=== PATIENT | male | born 1980 | race Caucasian/White ===

== ENCOUNTER 2017-04-05 07:16 | Emergency (ER) | payer OTHER, BC ==
[2017-04-05 07:22] VITALS: BP 125/90; PULSE 63; TEMP 98; BMI 31.8
--- NOTE | 2017-04-05 07:32 | PDOC ---
History of Present Illness - General Chief Complaint: Pain, Acute Stated Complaint: RIGHT FOOT PAIN Time Seen by Provider: 04/05/17 07:23 History Source: Patient Exam Limitations: No Limitations - History of Present Illness Initial Comments: 04/05/17 07:33 36 yo with hypothyroidism and asthma, on synthroid and inhalers, had table fall onto dorsum of left foot about a half hour ago. Hematoma about 3cm x 5 cm to dorsum of left foot obvious. No bony tenderness and no ligamentous laxity, foot NV intact, ankle not involved. Timing/Duration: 1/2 hour Severity: mild Modifying Factors: improves with: cold therapy Associated Symptoms: denies: denies symptoms Past History - Past Medical History Allergies/Adverse Reactions: Allergies Allergy/AdvReac Type Severity Reaction Status Date / Time No Known Allergies Allergy Verified 04/05/17 07:17 Home Medications: Ambulatory Orders Albuterol Sulfate Inhaler - [Ventolin Hfa Inhaler -] 1 puff IH ASDIR 04/05/17 Ibuprofen 800 mg PO TID #30 tablet 04/05/17 Levothyroxine [Synthroid -] 112 mcg PO DAILY 04/05/17 Oxycodone HCl/Acetaminophen [Percocet 5-325 mg Tablet] 1 - 2 tab PO Q6H #20 tab MDD 6 04/05/17 Asthma: Yes Thyroid Disease: Yes - Psycho/Social/Smoking Cessation Hx Anxiety: No Suicidal Ideation: No Smoking History: Never smoked Hx Alcohol Use: Yes Drug/Substance Use Hx: No Substance Use Type: Alcohol Review of Systems - Review of Systems Able to Perform ROS?: Yes Is the patient limited Citizen [place] proficient: No Constitutional: No: Symptoms Reported HEENTM: No: Symptoms Reported Respiratory: No: Symptoms reported Cardiac (ROS): No: Symptoms Reported ABD/GI: No: Symptoms Reported : No: Symptoms Reported Musculoskeletal: Yes: See HPI Integumentary: No: Symptoms Reported Neurological: No: Symptoms reported Psychiatric: No: Anxiety, Depression Endocrine: No: Symptoms Reported Hematologic/Lymphatic: No: Symptoms Reported All Other Systems: Reviewed and Negative *Physical Exam - Vital Signs Last Vital Signs Temp Pulse Resp BP Pulse Ox 98 F 63 18 125/90 100 04/05/17 07:17 04/05/17 07:17 04/05/17 07:17 04/05/17 07:17 04/05/17 07:17 - Physical Exam General Appearance: Yes: Other (alert and oriented, no distress) Musculoskeletal: positive: Other (Small hematoma to dorsum of left foot, no bony tenderness, no crepetance, no deformity, NV Intact distally.) *DC/Admit/Observation/Transfer Diagnosis at time of Disposition: Hematoma of lower extremity Qualifiers: Encounter type: initial encounter Laterality: right Qualified Code(s): S80.11XA - Contusion of right lower leg, initial encounter Contusion of right foot Qualifiers: Encounter type: initial encounter Qualified Code(s): S90.31XA - Contusion of right foot, initial encounter - Discharge Dispostion Condition at time of disposition: Stable - Prescriptions Prescriptions: Ibuprofen 800 mg PO TID #30 tablet Oxycodone HCl/Acetaminophen [Percocet 5-325 mg Tablet] 1 - 2 tab PO Q6H #20 tab MDD 6 - Referrals Referrals: Ricardo Rothman MD [Staff Physician] - - Patient Instructions Printed Discharge Instructions: Contusion, DI for Contusion Additional Instructions: Carlos - Sorry this happened to you today. Your x-rays were negative for fracture. Use the crutches for comfort. Percocet is for really bad pain, Motrin 800 is for bad pain. Ice it and keep it elevated. Wear the kishore to keep the swelling to a minimal. Follow up with Orthopedics next week. [place]- Dr. Filemon Chambers
[2017-04-05] MEDS ORDERED: IBUPROFEN 400 MG TABLET (FP) PO ONE ×2 (08:03→08:12)
== END 2017-04-05 08:22 | disposition home or self-care (01) ==
LOC: FER 07:16
DX: S80.11XA Contusion of right lower leg, initial encounter (principal); S90.31XA Contusion of right foot, initial encounter; W20.8XXA Other cause of strike by thrown, projected or falling object, initial encounter; Y93.9 Activity, unspecified; Y92.9 Unspecified place or not applicable; J45.909 Unspecified asthma, uncomplicated; E03.9 Hypothyroidism, unspecified
CPT/HCPCS: 73630-TC-RT; 99283-25

== ENCOUNTER 2019-09-28 20:41 | Emergency (ER) | payer BC ==
[2019-09-28 20:52] VITALS: BP 106/73; PULSE 64; TEMP 98; BMI 31.1
--- NOTE | 2019-09-28 21:18 | PDOC ---
Documentation entered by Yomaira Mendez SCRIBE, acting as scribe for Maxime Solitario MD. Maxime Solitario MD: This documentation has been prepared by the Andrea bush Aiswarya, SCRIBE, under my direction and personally reviewed by me in its entirety. I confirm that the documentation accurately reflects all work, treatment, procedures, and medical decision making performed by me. History of Present Illness - General Chief Complaint: Pain, Acute Stated Complaint: PAIN RIGHT SIDE, POSSIBLE CRACKED RIB History Source: Patient Exam Limitations: No Limitations - History of Present Illness Initial Comments: 09/28/19 21:12 The patient is a 39 year old male, with a significant PMH of asthma and hypothyroidism, who presents to the emergency department with right sided rib pain that occurred 2 days ago. 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 Patient noticed mild pain to the 10th and 11th rib at first but pain progressively worsened today. He notes pain is alleviated when sitting up and exacerbated when lying down. The patient denies, shortness of breath, headache and dizziness. Denies fever, chills, nausea, vomit, diarrhea and constipation. Denies numbness, tingling, falls, or head trauma. Allergies: NKDA Past surgical history: None reported Social history: None reported PCP: None reported Past History - Past Medical History Allergies/Adverse Reactions: Allergies Allergy/AdvReac Type Severity Reaction Status Date / Time No Known Allergies Allergy Verified 09/28/19 20:43 Home Medications: Ambulatory Orders Albuterol Sulfate Inhaler - [Ventolin Hfa Inhaler -] 1 puff IH ASDIR 04/05/17 Levothyroxine [Synthroid -] 112 mcg PO DAILY 04/05/17 Asthma: Yes Thyroid Disease: Yes - Psycho Social/Smoking Cessation Hx Smoking History: Never smoked Hx Alcohol Use: Yes Drug/Substance Use Hx: No Substance Use Type: Alcohol Review of Systems - Review of Systems Able to Perform ROS?: Yes Comments:: 09/28/19 21:13 GENERAL/CONSTITUTIONAL: No fever or chills. No weakness. HEAD, EYES, EARS, NOSE AND THROAT: No change in vision. No ear pain or discharge. No sore throat. CARDIOVASCULAR: No chest pain or shortness of breath. RESPIRATORY: No cough, wheezing, or hemoptysis. GASTROINTESTINAL: No nausea, vomiting, diarrhea or constipation. GENITOURINARY: No dysuria, frequency, or change in urination. MUSCULOSKELETAL: +right sided rib pain. No neck or back pain. SKIN: No rash NEUROLOGIC: No headache, vertigo, loss of consciousness, or change in strength/ sensation. ENDOCRINE: No increased thirst. No abnormal weight change. HEMATOLOGIC/LYMPHATIC: No anemia, easy bleeding, or history of blood clots. ALLERGIC/IMMUNOLOGIC: No hives or skin allergy. *Physical Exam - Vital Signs Last Vital Signs Temp Pulse Resp BP Pulse Ox 98 F 64 16 106/73 100 09/28/19 20:44 09/28/19 20:44 09/28/19 20:44 09/28/19 20:44 09/28/19 20:44 - Physical Exam Comments: 09/28/19 21:13 GENERAL: Awake, alert, and fully oriented, in no acute distress HEAD: No signs of trauma LUNGS: Breath sounds equal, clear to auscultation bilaterally. No wheezes, and no crackles HEART: Regular rate and rhythm, normal S1 and S2, no murmurs, rubs or gallops ABDOMEN: Soft, nontender, normoactive bowel sounds. No guarding, no rebound. No masses EXTREMITIES: +Tenderness on palpation to the 10th and 11th rib. No edema. No clubbing or cyanosis. No cords and erythema NEUROLOGICAL: Cranial nerves II through XII grossly intact. Normal speech, normal gait SKIN: Warm, Dry, normal turgor, no rashes or lesions noted. ED Treatment Course - RADIOLOGY Radiology Studies Ordered: Category Date Time Status RIBS RIGHT SIDE [RAD] Stat Radiology 09/28/19 20:49 Taken Medical Decision Making - Medical Decision Making 09/29/19 07:22 plain films -, as read by me, referred to radiology for definitive review rib contusion analgesia Discharge - Discharge Information Problems reviewed: Yes Clinical Impression/Diagnosis: Rib contusion Qualifiers: Encounter type: initial encounter Laterality: right Qualified Code(s): S20.211A - Contusion of right front wall of thorax, initial encounter Condition: Stable Disposition: HOME - Follow up/Referral - Patient Discharge Instructions Patient Printed Discharge Instructions: DI for Rib Contusion - Post Discharge Activity
== END 2019-09-28 21:25 | disposition home or self-care (01) ==
LOC: FER 20:41
DX: S20.211A Contusion of right front wall of thorax, initial encounter (principal); X58.XXXA Exposure to other specified factors, initial encounter; Y93.89 Activity, other specified; Y92.89 Other specified places as the place of occurrence of the external cause; J45.909 Unspecified asthma, uncomplicated; E07.9 Disorder of thyroid, unspecified
CPT/HCPCS: 71101-TC-RT-FY; 99281-25

== ENCOUNTER 2019-09-29 19:30 | Emergency (ER) | payer BC ==
[2019-09-29 19:57] VITALS: BP 154/97; PULSE 84; BMI 31.0
[2019-09-29] MEDS ORDERED: KETOROLAC TROMETHAMINE 60 MG/2 ML VIAL IM ONE (22:43)
[2019-09-29] MEDS ORDERED: KETOROLAC TROMETHAMINE 60 MG/2 ML VIAL ONE (22:44)
--- NOTE | 2019-09-30 04:52 | PDOC ---
Documentation entered by Yomaira Mendez SCRIBE, acting as scribe for Rubi Farrar MD. Rubi Farrar MD: This documentation has been prepared by the Andrea bush Aiswarya, SCRIBE, under my direction and personally reviewed by me in its entirety. I confirm that the documentation accurately reflects all work, treatment, procedures, and medical decision making performed by me. History of Present Illness - General Chief Complaint: Pain, Acute Stated Complaint: PAIN RIGHT SIDE OF CHEST POST INJURY Time Seen by Provider: 09/29/19 19:31 History Source: Patient Exam Limitations: No Limitations - History of Present Illness Initial Comments: 09/29/19 21:57 The patient is a 39 year old male, with a significant PMH of asthma and hypothyroidism, who presents to the emergency department with worsened right sided rib pain that began 3 days ago. The patient states he came in yesterday secondary to pain to the right sided ribs. He reports leaning his shoulder into another person's chest while playing basketball. Patient reports pain progressively worsened since yesterday and radiates to the RUQ and right shoulder, mild relief with ibuprofen taken at 11 am. He notes pain is exacerbated with deep inspiration and movement. The patient denies numbness, tingling, falls, or head trauma. Denies chest pain, shortness of breath, headache and dizziness. Denies fever, chills, nausea, vomit, diarrhea and constipation. Allergies: NKDA Past surgical history: None reported Social history: None reported PCP: None reported Past History - Past Medical History Allergies/Adverse Reactions: Allergies Allergy/AdvReac Type Severity Reaction Status Date / Time No Known Allergies Allergy Verified 09/29/19 19:31 Home Medications: Ambulatory Orders Albuterol Sulfate Inhaler - [Ventolin Hfa Inhaler -] 1 puff IH ASDIR 04/05/17 Levothyroxine [Synthroid -] 112 mcg PO DAILY 04/05/17 Diclofenac Sodium 75 mg PO BID PRN #14 tablet. 09/29/19 Oxycodone HCl/Acetaminophen [Percocet 5-325 mg Tablet] 1 tab PO Q6H PRN #12 tablet MDD 4 tabs 09/29/19 Asthma: Yes COPD: No Thyroid Disease: Yes - Psycho Social/Smoking Cessation Hx Smoking History: Never smoked Have you smoked in the past 12 months: No Hx Alcohol Use: Yes Drug/Substance Use Hx: No Substance Use Type: Alcohol Review of Systems - Review of Systems Able to Perform ROS?: Yes Comments:: 09/29/19 21:58 GENERAL/CONSTITUTIONAL: No fever or chills. No weakness. HEAD, EYES, EARS, NOSE AND THROAT: No change in vision. No ear pain or discharge. No sore throat. CARDIOVASCULAR: No chest pain or shortness of breath. RESPIRATORY: No cough, wheezing, or hemoptysis. GASTROINTESTINAL: No nausea, vomiting, diarrhea or constipation. GENITOURINARY: No dysuria, frequency, or change in urination. MUSCULOSKELETAL: +right rib pain and neck. No back pain. SKIN: No rash NEUROLOGIC: No headache, vertigo, loss of consciousness, or change in strength/ sensation. ENDOCRINE: No increased thirst. No abnormal weight change. HEMATOLOGIC/LYMPHATIC: No anemia, easy bleeding, or history of blood clots. ALLERGIC/IMMUNOLOGIC: No hives or skin allergy. *Physical Exam - Vital Signs Last Vital Signs Temp Pulse Resp BP Pulse Ox 84 20 154/97 100 09/29/19 19:32 09/29/19 19:32 09/29/19 19:32 09/29/19 19:32 - Physical Exam Comments: 09/29/19 21:58 GENERAL: Awake, alert, and fully oriented, in no acute distress HEAD: No signs of trauma EYES: PERRLA, EOMI, sclera anicteric, conjunctiva clear ENT: Auricles normal inspection, hearing grossly normal, nares patent, oropharynx clear without exudates. Moist mucosa NECK: Normal ROM, supple, no lymphadenopathy, JVD, or masses LUNGS: Breath sounds equal, clear to auscultation bilaterally. No wheezes, and no crackles HEART: Regular rate and rhythm, normal S1 and S2, no murmurs, rubs or gallops ABDOMEN:+Mild RUQ tenderness on palpation. No other tenderness. . No guarding, no rebound. No masses EXTREMITIES: +tenderness on palpation right anterior lower rib cage and anterior axillary line. No step off or crepitus. NEUROLOGICAL: Cranial nerves II through XII grossly intact. Normal speech, normal gait SKIN: Warm, Dry, normal turgor, no rashes or lesions noted. ED Treatment Course - RADIOLOGY Radiology Studies Ordered: Category Date Time Status ABDOMEN CT WITHOUT CONTRAST [CT] Stat CT Scan 09/29/19 20:[address] WITHOUT CONTRAST [CT] Stat CT Scan 09/29/19 20:41 Completed Medical Decision Making - Medical Decision Making As noted above, this 39-year-old man with history of right chest wall injury a few days ago returns to the ER after presentation yesterday: At that time, rib series was negative for fracture and no other pathology was evident. Since then , he has had persistent pain on the right side radiating to the shoulder area as well as to the right upper quadrant of his abdomen. No new trauma sustained. Physical exam as noted above, notable for right upper quadrant abdominal tenderness. Although rib series was clearly normal yesterday, since he has persistent pain with some tenderness of the right upper quadrant, further imaging was performed : Chest CT and noncontrast abdominal/pelvic CT. No significant abnormality seen on interpretation of CT and images by Dr. Amato of the radiology staff Results discussed with the patient. Persistent pain likely related to overactivity (patient today and admits that he did not limit his activity) as well as under usage of analgesia by the patient. Prescription for diclofenac 75 mg to be used up to twice a day sent to his pharmacy. Also, a small(#12) prescription for Percocet 5/325 [to be used for severe pain when patient does not need to be alert] also prescribed. He should not work for the next 2 days (work documentation provided). The patient should return to the ER if he has high fever/shortness of breath or severe cough. He should follow-up with his doctor within the next 5 to 7 days Discharge - Discharge Information Problems reviewed: Yes Clinical Impression/Diagnosis: Chest wall pain Condition: Stable Disposition: HOME - Additional Discharge Information Prescriptions: Diclofenac Sodium 75 mg PO BID PRN #14 tablet. PRN Reason: Pain Oxycodone HCl/Acetaminophen [Percocet 5-325 mg Tablet] 1 tab PO Q6H PRN #12 tablet MDD 4 tabs PRN Reason: Severe Pain - Follow up/Referral - Patient Discharge Instructions Patient Printed Discharge Instructions: DI for Rib Contusion Additional Instructions: Rest; avoid strenuous activity for the next few days No work for the next 2 days Diclofenac 75 mg twice a day as needed for mild to moderate pain (take with food ) Percocet 5/325 1 tablet every 6 hours as needed for severe pain Return to ER if you have fever/severe cough/shortness of breath Follow-up with your doctor within the next 5 to 7 days - Post Discharge Activity Work/Back to School Note: Back to Work
== END 2019-09-29 22:57 | disposition home or self-care (01) ==
LOC: FER 19:30
PROC: 3E0233Z Introduction of Anti-inflammatory into Muscle, Percutaneous Approach (ICD-10-PCS; principal; 2019-09-29)
DX: R07.89 Other chest pain (principal)
CPT/HCPCS: 71250-TC; 74150-TC; 99281-25